=== PATIENT | female | born 1955 | race Caucasian/White ===

== ENCOUNTER 2024-09-22 06:45 | Day surgery (SDC) | payer MEDICARE, BC, SELFPAY ==
[2024-09-21 13:58] VITALS: BMI 30.3
[2024-09-22] VITALS (14 sets, daily range): BP systolic 121–145; BP diastolic 71–93; PULSE 55–76; RESP 13–21; TEMP 36.6–36.7; O2SAT 91–98; BMI 29.8
[2024-09-22] MEDS: SODIUM CHLORIDE 0.9% 500 ML 500 ML 20 ML IV (07:24)
[2024-09-22] MEDS: DiphenhydrAMINE INJ 50 MG/ML VIAL 25 MG IV (07:27)
[2024-09-22] MEDS: MIDAZOLAM INJ 1 MG/ML VIAL 2 ML (ASD USE ONLY) 2 MG IV (07:30)
[2024-09-22] MEDS: fentaNYL CIT INJ 50 mCg/ML AMP 2ML (ASD USE ONLY) IV (07:32)
== END 2024-09-22 08:40 | disposition home or self-care (01) ==
PROVIDERS: PCP Family Medicine; Referring Provider Surgery; Visit Provider Surgery
PROC: 0DBE8ZX Excision of Large Intestine, Via Natural or Artificial Opening Endoscopic, Diagnostic (ICD-10-PCS; CPT 45380; principal; 2024-09-22 07:30)
DX: Z12.11 Encounter for screening for malignant neoplasm of colon (principal); D12.2 Benign neoplasm of ascending colon; D12.3 Benign neoplasm of transverse colon; D12.5 Benign neoplasm of sigmoid colon; K57.30 Diverticulosis of large intestine without perforation or abscess without bleeding
CPT/HCPCS: 45385; J1200; J2250; J3010; J7040